=== PATIENT | female | born 1995 | race African-American/Black ===

== ENCOUNTER 2016-11-21 15:27 | Emergency (ER) | payer OTHER ==
--- NOTE | 2016-11-21 17:20 | ED GENERAL ADULT ---
History of Present Illness General Chief Complaint: General Adult Stated Complaint: MULTIPLE COMPLAINTS, ABD PAIN, KNEE PAIN, COUGH Source: patient Exam Limitations: no limitations Vital Signs & Intake/Output Vital Signs & Intake/Output Vital Signs Date Time Temp Pulse Resp B/P B/P Pulse O2 O2 Flow FiO2 Mean Ox Delivery Rate 11/21 1735 97.7 11/21 1538 97.7 88 20 117/72 99 Allergies Coded Allergies: No Known Allergies (11/21/16) Reconcile Medications No Known Home Medications Triage Note: PER PT ABD PAIN FOR DAYS ALSO COUGH AND KNEE PAIN NO NVD BUT EHEN COUGHING DRY HEAVE. LMP NOVEMBER 09. Triage Nurses Notes Reviewed? yes : No Patient currently breastfeeds: No HPI: Patient presents with a few different complaints. Her first complaint is abdominal pain that she's had for the past week. The pain is crampy in nature. The pain is diffuse. There are no aggravating or mitigating factors. There is no radiation outside of the abdominal area. Patient rates it as 4 out of 10. She states that she has occasional nausea and dry heaving but no vomiting. There is no constipation or diarrhea. There is no dysuria. Her last mental period was November 09. She is also been having a nonproductive cough for the past 3 days. There are no fevers or chills. There is no shortness of breath. There is no dyspnea on exertion. Patient is also having a sharp sensation in the middle of her back when she coughs. The pain started yesterday. The pain is only present when she coughs. There is no radiation. When she coughs she rates as a 6 out of 10. Past History Travel History Traveled to [place] past 21 day No Medical History Any Pertinent Medical History? none Neurological: NONE EENT: NONE Cardiovascular: NONE Respiratory: NONE Gastrointestinal: NONE Hepatic: NONE Renal: NONE Musculoskeletal: NONE Psychiatric: NONE Endocrine: NONE Surgical History Surgical History: non-contributory Psychosocial History What is your primary language Swedish Tobacco Use: Never used ETOH Use: occasional use Illicit Drug Use: denies illicit drug use Family History Hx Contributory? No Review of Systems Review of Systems Constitutional: Reports: no symptoms. EENTM: Reports: no symptoms. Respiratory: Reports: see HPI, cough. Cardiovascular: Reports: no symptoms. GI: Reports: see HPI, abdominal pain, nausea. Musculoskeletal: Reports: see HPI, back pain. Skin: Reports: no symptoms. Neurological/Psychological: Reports: no symptoms. Hematologic/Endocrine: Reports: no symptoms. Immunologic/Allergic: Reports: no symptoms. All Other Systems: Reviewed and Negative Physical Exam Physical Exam General Appearance: well developed/nourished, alert, awake, anxious, mild distress Head: atraumatic, normal appearance Eyes: Bilateral: PERRL, EOMI. Ears, Nose, Throat: normal pharynx, normal ENT inspection Neck: normal inspection, supple, full range of motion Respiratory: normal breath sounds, chest non-tender, no respiratory distress, lungs clear Cardiovascular: regular rate/rhythm, normal peripheral pulses Gastrointestinal: normal bowel sounds, soft, non-tender Back: normal inspection, normal range of motion Extremities: normal inspection, normal capillary refill, normal range of motion, no edema Neurologic/Psych: no motor/sensory deficits, awake, alert, oriented x 3, normal gait, normal mood/affect Skin: intact, normal color, warm/dry Lymphatic: no anterior cervical richard Core Measures ACS in differential dx? No CVA/TIA Diagnosis: No Severe Sepsis Present: No Septic Shock Present: No Progress Differential Diagnoses I considered the following diagnoses in my evaluation of the patient: [ , pancreatitis, biliary colic, electrolyte abnormality, pneumonia, highly doubt PE.] Plan of Care: Orders Procedure Date/time Status URINALYSIS 11/21 1718 Complete LIPASE 11/21 1718 Complete HUMAN BETA HCG SCREEN 11/21 1718 Complete COMPREHENSIVE METABOLIC PANEL 11/21 1718 Complete CBC WITHOUT DIFFERENTIAL 11/21 1718 Complete AMYLASE 11/21 1718 Complete Laboratory Tests 11/21/16 1733: Anion Gap 12, Estimated GFR > 60, BUN/Creatinine Ratio 18.3, Glucose 77, Calcium 9.7, Total Bilirubin 1.1, AST 30, ALT 37, Alkaline Phosphatase 45, Total Protein 8.8 H, Albumin 4.8, Globulin 4.0, Albumin/Globulin Ratio 1.2, Amylase 74, Lipase 162, Total Beta HCG NEGATIVE, CBC w Diff NO MAN DIFF REQ, RBC 4.58, MCV 86.3, MCH 29.0, RDW 13.2, MPV 7.6, Gran % 36.0 L, Lymphocytes % 52.9 H, Monocytes % 9.8 H, Eosinophils % 0.9, Basophils % 0.4, Absolute Granulocytes 1.8, Absolute Lymphocytes 2.6, Absolute Monocytes 0.5, Absolute Eosinophils 0, Absolute Basophils 0, PUBS [facility] 33.6 11/21/16 1538: Urine Color YEL, Urine Clarity CLEAR, Urine pH 6.5, Ur Specific [place] 1.010, Urine Protein NEG, Urine Ketones NEG, Urine Nitrite NEG, Urine Bilirubin NEG, Urine Urobilinogen 0.2, Ur Leukocyte Esterase NEG, Ur Microscopic EXAM NOT REQUIRED, Urine Hemoglobin NEG, Urine Glucose NEG Initial ED EKG: none Departure Departure Disposition: HOME OR SELF CARE Condition: Stable Clinical Impression Primary Impression: Abdominal pain, unspecified site Secondary Impressions: Cough Referrals: PATIENT HAS NO PRIMARY CARE DR (PCP/Family) Additional Instructions: Return if symptoms worsen or for any concerns. Departure Forms: Customer Survey General Discharge Information Prescriptions: Current Visit Scripts Ondansetron (Zofran Odt) 1 TAB SL TID PRN NAUSEA #10 TAB Benzonatate (Tessalon Perle) 1 CAP PO TID #30 CAP Hyoscyamine (Levsin) 1 TAB PO Q4 PRN ABDOMINAL PAIN #20 TAB Critical Care Note Critical Care Note Critical Care Time: non-applicable
[2016-11-21 17:44] LABS: ABSOLUTE BASOPHIL COUNT 0 /CUMM (0.0-0.2); ABSOLUTE EOSINOPHIL COUNT 0 /CUMM (0.0-0.7); ABSOLUTE GRANULOCYTE CT 1.8 /CUMM (1.4-6.5); ABSOLUTE LYMPH COUNT 2.6 /CUMM (1.2-3.4); ABSOLUTE MONOCYTE COUNT 0.5 /CUMM (0.10-0.60); BASOPHIL % 0.4 % (0.0-2.0); EOSINOPHIL % 0.9 % (0-5); HEMATOCRIT 39.5 % (37-47); MEAN CORPUSCULAR HGB CONC 33.6 G/DL (33.0-37.0); MEAN CORPUSCULAR VOLUME 86.3 FL (81.0-99.0); MEAN PLATELET VOLUME 7.6 FL (7.4-10.4); PLATELET COUNT 269 /CUMM (130-400); RBC DISTRIBUTION WIDTH 13.2 % (11.5-14.5); RED BLOOD CELL CT 4.58 /CUMM (4.20-5.40); WHITE BLOOD CELL COUNT 4.9 /CUMM (4.8-10.8)
[2016-11-21] MEDS ORDERED: ZOFRAN ODT4 M1 SL (19:31)
[2016-11-21] MEDS ORDERED: TESSALON PERLE100 M1 PO (19:31)
[2016-11-21] MEDS ORDERED: LEVSIN0.125 M1 PO (19:31)
[2016-11-21 19:38] VITALS: BP 111/80
== END 2016-11-21 19:38 ==
LOC: ERH 15:27
PROVIDERS: Emergency Medicine
DX: R10.9 Unspecified abdominal pain (principal); R05 Cough
CPT/HCPCS: 81003